=== PATIENT | female | born 1950 | race Caucasian/White ===

== ENCOUNTER 2024-03-14 11:32 | Inpatient (IN) | payer MEDICARE, OTHER ==
[~2024-03-14] VITALS: Ht 152.4 cm; Wt 61.2 kg
[~2024-03-14 11:32] MED LIST: ACET-73 PO; HYDR-4384 PO; NO HOME MEDS; ONDA4TAB5 PO; PANT40TA2 IV
[2024-03-14 12:37] LABS: BASOPHILS % (AUTO) 0.5 % (0.0-2.0); EOSINOPHILS # (AUTO) 0.2 K/uL (0.0-0.7); EOSINOPHILS % (AUTO) 2.6 % (0.0-6.0); HEMATOCRIT 37 % (33-45); HEMOGLOBIN 12.1 g/dL (11.5-14.8); LYMPHOCYTES # (AUTO) 0.6 K/uL (0.8-4.8); LYMPHOCYTES % (AUTO) 9.2 % (20.0-44.0); MEAN CORPUSCULAR HEMOGLOBIN 30 PG (26.0-33.0); MEAN CORPUSCULAR HGB CONC 33 g/dl (31.0-36.0); MEAN CORPUSCULAR VOLUME 90 fL (82-100); MONOCYTES # (AUTO) 0.7 K/uL (0.1-1.30); MONOCYTES % (AUTO) 10.7 % (2.0-12.0); NEUTROPHILS # (AUTO) 4.9 K/uL (1.8-8.9); PLATELET COUNT (AUTO) 269 K/uL (150-450); RED BLOOD CELL COUNT(AUTO) 4.08 MIL/uL (4.0-5.2); RED CELL DISTRIBUTION WIDTH 15.4 % (11.5-15.0); WHITE BLOOD COUNT (AUTO) 6.3 K/uL (4.3-11.0)
[2024-03-14 12:40] LABS: CALCIUM, SERUM 9.1 mg/dL (8.5-10.1); CARBON DIOXIDE 29 mmol/L (21-32); CHLORIDE 106 mmol/L (98-107); CREATININE 1.2 mg/dL (0.6-1.3); GLUCOSE 88 mg/dL (74-106); POTASSIUM 3.7 mmol/L (3.5-5.1); SODIUM SERUM 141 mmol/L (136-145); UREA NITROGEN, BLOOD 20 mg/dL (7-18)
[2024-03-14] MEDS ORDERED: ATEN100T PO (12:46)
[2024-03-14] MEDS ORDERED: LOSA1TAB42 PO (12:46)
[2024-03-14] MEDS ORDERED: ONDANSETRON HCL/PF 4 MG/2 ML VIAL IVP PRN (13:00)
[2024-03-14] MEDS ORDERED: hydrALAZINE HCL IV 20 MG VIAL IV PRN (13:00)
[2024-03-14] MEDS ORDERED: MORPHINE SULFATE INJ 2 MG/ML DISP.SYRIN IV PRN (13:00)
[2024-03-14 16:00] VITALS: BP 134/93; TEMP 98.8; O2SAT 100
[2024-03-14 20:00] VITALS: BP 107/57; TEMP 99.1; O2SAT 96
[2024-03-14] MEDS: HEPARIN SODIUM, PORCINE 5000 UNITS/1 ML VIAL SQ SCH (21:58)
[2024-03-15] MEDS: ACETAMINOPHEN 325 MG TABLET PO PRN (05:49)
[2024-03-15 07:24] LABS: BASOPHILS % (AUTO) 0.4 % (0.0-2.0); EOSINOPHILS # (AUTO) 0.2 K/uL (0.0-0.7); HEMATOCRIT 35 % (33-45); HEMOGLOBIN 11.5 g/dL (11.5-14.8); LYMPHOCYTES # (AUTO) 0.7 K/uL (0.8-4.8); LYMPHOCYTES % (AUTO) 13.1 % (20.0-44.0); MEAN CORPUSCULAR HEMOGLOBIN 29 PG (26.0-33.0); MEAN CORPUSCULAR HGB CONC 33 g/dl (31.0-36.0); MEAN CORPUSCULAR VOLUME 89 fL (82-100); MONOCYTES # (AUTO) 0.6 K/uL (0.1-1.30); MONOCYTES % (AUTO) 11.9 % (2.0-12.0); NEUTROPHILS # (AUTO) 3.7 K/uL (1.8-8.9); NEUTROPHILS % (AUTO) 71.6 % (43.0-81.0); PLATELET COUNT (AUTO) 241 K/uL (150-450); RED BLOOD CELL COUNT(AUTO) 3.91 MIL/uL (4.0-5.2); RED CELL DISTRIBUTION WIDTH 14.8 % (11.5-15.0); WHITE BLOOD COUNT (AUTO) 5.2 K/uL (4.3-11.0)
[2024-03-15 07:37] LABS: ALANINE AMINOTRANSFERASE 36 U/L (12-78); ALBUMIN 2.7 g/dL (3.4-5.0); ALKALINE PHOSPHATASE 74 U/L (46-116); ASPARTATE AMINOTRANSFERASE 29 U/L (15-37); BILIRUBIN,TOTAL 0.6 mg/dL (0.2-1.0); CALCIUM, SERUM 8.9 mg/dL (8.5-10.1); CARBON DIOXIDE 25 mmol/L (21-32); CHLORIDE 106 mmol/L (98-107); GLUCOSE 87 mg/dL (74-106); MAGNESIUM 1.9 mg/dL (1.8-2.4); PHOSPHORUS 3.4 mg/dL (2.5-4.9); POTASSIUM 3.7 mmol/L (3.5-5.1); SODIUM SERUM 139 mmol/L (136-145); TOTAL PROTEIN, SERUM 6.2 g/dL (6.4-8.2); UREA NITROGEN, BLOOD 21 mg/dL (7-18)
[2024-03-15 08:00] VITALS: BP 122/74; TEMP 98.8; O2SAT 98
[2024-03-15] MEDS: CEFTRIAXONE 1 G in IV D5W 50 ML IV SCH (08:55)
[2024-03-15 16:00] VITALS: BP 106/64; TEMP 98.6; O2SAT 99
[2024-03-15 20:00] VITALS: BP 123/57; TEMP 98.4; TEMP 98.9; O2SAT 98
[2024-03-16 08:20] VITALS: BP 123/58; TEMP 98.2; O2SAT 97
[2024-03-16 16:40] VITALS: BP 106/66; TEMP 98.2; O2SAT 98
[2024-03-16 20:00] VITALS: BP_SYST 111; BP_DIAS 58; BP_DIAS 68; TEMP 98.6; O2SAT 98
[2024-03-16 20:09] VITALS: BP 101/52; TEMP 98.6; O2SAT 98
[2024-03-17 08:00] VITALS: BP 115/79; TEMP 98.8; O2SAT 98
[2024-03-17 16:00] VITALS: BP 109/77; TEMP 98; O2SAT 98
[2024-03-17] MEDS: CLOTRIMAZOLE 1% 15 GM TUBE TP SCH (16:55)
== END 2024-03-17 17:15 | DRG 690 ==
LOC: ER 11:39 → MED 13:01
PROVIDERS: ADMIT Internal Medicine; ATTEND Internal Medicine
DX: N39.0 Urinary tract infection, site not specified (principal); Z59.00 Homelessness unspecified; R62.7 Adult failure to thrive; G89.29 Other chronic pain; G20.A1 Parkinson's disease without dyskinesia, without mention of fluctuations; Z66 Do not resuscitate; H54.8 Legal blindness, as defined in USA; I10 Essential (primary) hypertension; H40.9 Unspecified glaucoma; Z79.899 Other long term (current) drug therapy
CPT/HCPCS: 36415; 71045-TC; 80048-TC; 80053-TC; 83735-TC; 84100-TC; 84484-TC; 85025-TC; A4223; G0378; J0696; J1644; J7050; J7060